=== PATIENT | female | born 1975 | race Caucasian/White ===

== ENCOUNTER 2017-09-03 10:04 | Emergency (ER) | payer OTHER ==
[2017-09-03] MEDS ORDERED: ASPIRIN TABLET 325 MG TAB PO ONE (10:30)
[2017-09-03] MEDS ORDERED: NITROGLYCERIN 0.4 MG 25 EA TAB SL ONE (10:30)
[2017-09-03] MEDS ORDERED: SODIUM CHLORIDE 0.9% (FLUSH) 10 ML SYG IV PRN (10:30)
--- NOTE | 2017-09-03 10:54 | ED.PDOC ---
History of Present Illness - General Chief Complaint: Cardiovascular Problem Stated Complaint: chest pain Time Seen by Provider: 09/03/17 10:30 Source: patient Exam Limitations: no limitations - History of Present Illness Initial Comments: PT PRESENTS TO THE ED WITH COMPLAINTS OF INTERMITTENT CHEST PAIN AND LIGHTHEADEDNESS SINCE THIS AM UPON AWAKENING. PT IS CURRENTLY INCARCERATED AND STATES THAT SHE HAS NOT TAKEN HER BP MEDICINE FOR THE LAST 4 DAYS. PT STATES THAT PAIN IS MIDSTERNAL AND SHARP IN NATURE. PT REPORTS PAIN IS 4/10 IN INTENSITY WHEN IT OCCURS. Timing/Duration: 4-6 hours Severity/Quality: mild, sharp Location: substernal Chest Pain Radiation: neck Activities at Onset: none Prior Chest Pain/Cardiac Workup: no prior chest pain Improving Factors: nothing Worsening Factors: nothing Nitro Today/Relief: no nitro taken today Aspirin Treatment Today: no aspirin today Associated Symptoms: denies symptoms Allergies/Adverse Reactions: Allergies NO KNOWN ALLERGY Allergy (Verified 09/03/17 10:17) Home Medications: Ambulatory Orders Metoprolol Succinate [Metoprolol Succinate ER] 50 mg PO DAILY 30 Days #30 tab Review of Systems - Review of Systems Constitutional: Denies: chills, fever EENTM: Denies: nose congestion, throat pain Respiratory: Denies: cough, short of breath Cardiology: States: see HPI, chest pain. Denies: palpitations Gastrointestinal/Abdominal: Denies: abdominal pain, nausea, vomiting Genitourinary: Denies: dysuria, frequency Musculoskeletal: Denies: joint pain, joint swelling Skin: Denies: change in hair/nails, dryness Neurological: Denies: headache, paresthesia Endocrine: States: no symptoms reported Hematologic/Lymphatic: States: no symptoms reported Past Medical History (General) - Patient Medical History Hx Hypertension: Yes Surgical History: cholecystectomy, other - X 2, HERNIA REPAIR - Vaccination History Hx Tetanus, Diphtheria Vaccination: No Hx Influenza Vaccination: No Hx Pneumococcal Vaccination: No - Social History Hx Tobacco Use: Yes - 1/2 PPD Hx Alcohol Use: No Hx Substance Use: No Hx Substance Use Treatment: No Hx Depression: Yes - Female History Patient is a Female of Child Bearing Age (10 -59 yrs old): Yes Patient : No Family Medical History - Family History Mother Family History: Unknown Physical Exam - Physical Exam General Appearance: Alert, Comfortable, No apparent distress Eyes, Ears, Nose, Throat Exam: PERRL/EOMI, normal ENT inspection Neck: non-tender, full range of motion, normal inspection Respiratory: normal breath sounds, no respiratory distress, no accessory muscle use Cardiovascular/Chest: regular rate, rhythm, no edema, no murmur Gastrointestinal/Abdominal: soft, tenderness - MILD EPIGASTRIC Extremity: no pedal edema, no calf tenderness Neurologic: alert, normal mood/affect, oriented x 3 Skin Exam: normal color, warm/dry Progress - Progress Progress: 09/03/17 11:58 PT HAD RESOLUTION OF PAIN AFTER 1 SL NTG, HOWEVER BP REMAINS ELEVATED AT 160/ 108. WILL ADMINISTER 5MG IV LOPRESSOR AND GIVE RX FOR PTS BP MEDS. 09/03/17 12:45 PTS REPEAT BP AFTER LOPRESSOR 144/90. - Results/Orders Results/Orders: 09/03/17 10:30 IV Care:Saline Lock per Protoc QSHIFT Telemetry .ONCE Sodium Chloride 0.9% (Flush) [Saline Flush Syringe] 10 ml IV PRN PRN EKG STAT EKG Stat Pulse Ox Stat 09/03/17 10:32 EKG Assessment ONCE Pulse Oximetry Assessment DAILY Laboratory Results - last 24 hr 09/03/17 10:40 WBC 7.1 RBC 4.67 Hgb 12.4 Hct 37.3 MCV 79.8 L MCH 26.5 L MCHC 33.1 RDW 17.4 H Plt Count 429 H MPV 6.9 L Absolute Neuts (auto) 5.10 Absolute Lymphs (auto) 1.40 Absolute Monos (auto) 0.40 Absolute Eos (auto) 0.10 Absolute Basos (auto) 0.10 Neutrophils % 72.4 Lymphocytes % 19.2 L Monocytes % 5.8 Eosinophils % 1.8 Basophils % 0.8 PT 11.9 INR 1.050 PTT (SP) 28.1 Sodium 136 Potassium 3.8 Chloride 102 Carbon Dioxide 23 Anion Gap 14.8 BUN 9 Creatinine 0.79 BUN/Creatinine Ratio 11.4 Random Glucose 99 Serum Osmolality 270.7 L Calcium 9.9 Magnesium 1.9 Creatine Kinase 52 CK-MB (CK-2) 0.7 CK-MB (CK-2) % Not Reportable Troponin I < 0.02 B-Natriuretic Peptide 90.7 - EKG/XRAY/CT EKG: Sinus - 90BPM, NL INTERVALS, NL AXIS, no ST T wave changes - NO OLD EKG FOR COMPARISON XRAY: chest - NO ACTIVE DISEASE PER RAD. Departure - Departure Clinical Impression: Chest pain, Uncontrolled hypertension, Medication refill Time of Disposition: 12:00 Disposition: Intermediate Condition: Good Departure Forms: ED Discharge - Pt. Copy, Patient Portal Self Enrollment Instructions: High Blood Pressure, DI for Chest Pain Diet: resume usual diet Activity: increase activity as tolerated Referrals: CINDY POLLACK [Primary Care Provider] - 1-2 Weeks Prescriptions: Metoprolol Succinate [Metoprolol Succinate ER] 50 mg PO DAILY 30 Days #30 tab Home Medications: Ambulatory Orders Metoprolol Succinate [Metoprolol Succinate ER] 50 mg PO DAILY 30 Days #30 tab
--- NOTE | 2017-09-03 10:58 | RAD ---
Study: Single Frontal View of the Chest. Indication:chest pain Comparison: None. Impression: Heart size normal. Lungs clear. No acute osseous abnormality. Electronically signed by: Bassam Burroughs MD 09/03/2017 10:56 AM [facility]
[2017-09-03] MEDS ORDERED: METOPROLOL TARTRATE INJ 5 MG/5 ML VIAL IV ONE (11:57)
[2017-09-03 12:37] VITALS: TEMP 97.6
[2017-09-03 12:58] VITALS: BP 154/111; O2SAT 99
== END 2017-09-03 12:58 ==
LOC: ER 10:04
DX: R07.9 Chest pain, unspecified (principal); I10 Essential (primary) hypertension; F17.200 Nicotine dependence, unspecified, uncomplicated; F32.9 Major depressive disorder, single episode, unspecified; Z76.0 Encounter for issue of repeat prescription